=== PATIENT | male | born 1985 | race Caucasian/White ===

== ENCOUNTER 2017-11-23 08:41 | Outpatient (CLI) | payer BC ==
--- NOTE | 2017-11-23 11:58 | ULT ---
ULTRASOUND ABDOMEN LIMITED: (RIGHT UPPER QUADRANT) DATE: 11/23/17. HISTORY: A 32-year-old male with liver mass found on noncontrast CT. FINDINGS: There is a heterogeneously moderately hyperechoic lobulated solid mass in the left lobe of the liver, measuring approximately 6.5 x 4.5 x 4.5 cm. This corresponds to the mass found on the noncontrast C T. Gallbladder wall thickness is normal. No gallstones or sludge. No sonographic Calvo's sign.. No hydronephrosis of right kidney. Nonspecific sonographic appearance of the pancreas. Common duct caliber 4 mm. IMPRESSION: 1. Large solid mass in the left lobe of the liver. Possibilities include large hemangioma vs malign ant tumor. 2. Recommend further evaluation with multiphase MRI or CT, of the abdomen, liver mass protocol, with and without contrast. ZAK Mcqueen POS: JESSICA
== END 2017-11-23 08:42 | disposition home or self-care (01) ==
LOC: SCSULT 08:41
PROVIDERS: ATTEND Family Medicine
DX: R16.0 Hepatomegaly, not elsewhere classified (principal)
CPT/HCPCS: 76705